=== PATIENT | male | born 1955 | race Caucasian/White ===

== ENCOUNTER 2021-11-13 06:08 | Day surgery (SDC) | payer OTHER ==
[2021-11-11 10:25] LABS: COVID AG,FIA SOURCE NASAL SWAB
[~2021-11-13] VITALS: Ht 172.7 cm; Wt 73.6 kg
[2021-11-13] MEDS ORDERED: TETRACAINE HCL/PF 0.5% 4 ML OPHTHALMIC SOLUTION OU ONE (06:09)
[2021-11-13] MEDS ORDERED: BALANCED SALT 15 ML OPHTHALMIC IRRIG.SOLN OU ONE (06:09)
[2021-11-13] MEDS ORDERED: POVIDONE-IODINE 10% 15 ML SOLUTION UD TP ONE (06:09)
[2021-11-13] MEDS ORDERED: EPINEPHrine 1:1,000 [1 MG/ML] VIAL IM ONE (06:09)
[2021-11-13] MEDS ORDERED: LIDOCAINE/PF 1% 2 ML VIAL IM ONE (06:09)
[2021-11-13] MEDS ORDERED: MIDAZOLAM HCL 2 MG/2 ML VIAL IVP ONE (06:09)
[2021-11-13] MEDS ORDERED: CHONDR SULF A SOD/HYALURONATE 1.05 ML KIT IO ONE (06:09)
[2021-11-13] MEDS ORDERED: FentaNYL CITRATE PF 100 MCG/2 ML VIAL IVP ONE (06:09)
[2021-11-13] MEDS ORDERED: RINGERS SOLUTION,LACTATED 500 ML IV ONE ×2 (06:30→06:35)
[2021-11-13] MEDS ORDERED: TROPICAMIDE 1% 2 ML OPHTHALMIC SOLUTION ONE ×2 (06:52→06:53)
[2021-11-13] MEDS ORDERED: MOXIFLOXACIN HCL 0.5% 3 ML OPHTHALMIC SOLUTION ONE ×2 (06:52→06:53)
[2021-11-13] MEDS ORDERED: PHENYLEPHRINE HCL 2.5% 2 ML OPHTHALMIC SOLUTION ONE ×2 (06:52→06:53)
[2021-11-13] MEDS ORDERED: KETOROLAC TROMETHAMINE 0.5% 5 ML OPHTHALMIC SOLUTION ONE ×2 (06:52→06:53)
[2021-11-13] MEDS: KETOROLAC TROMETHAMINE 0.5% 5 ML OPHTHALMIC SOLUTION OD SCH ×3 (07:01→07:13)
[2021-11-13] MEDS: MOXIFLOXACIN HCL 0.5% 3 ML OPHTHALMIC SOLUTION OD SCH ×3 (07:01→07:14)
[2021-11-13] MEDS: PHENYLEPHRINE HCL 2.5% 2 ML OPHTHALMIC SOLUTION OD SCH ×3 (07:01→07:14)
[2021-11-13] MEDS: TROPICAMIDE 1% 2 ML OPHTHALMIC SOLUTION OD SCH ×3 (07:01→07:14)
[2021-11-13 07:51] LABS: GLUCOMETER DEV NAME(LOC) SDS.; GLUCOSE,POINT OF CARE 202 MG/DL (70-110)
[2021-11-13] MEDS ORDERED: ATOR40TA28 PO (08:08)
[2021-11-13] MEDS ORDERED: LISI-894 PO (08:09)
[2021-11-13] MEDS ORDERED: METF-1211 PO (08:10)
[2021-11-13] MEDS ORDERED: AMLO-257 PO (08:11)
[2021-11-13] MEDS ORDERED: ASPI-1450 PO (08:11)
[2021-11-13] MEDS ORDERED: MAGN250T9 PO (08:12)
== END 2021-11-13 10:00 | disposition home or self-care (01) ==
LOC: SURGERY 06:08
PROVIDERS: ATTEND Ophthalmology
DX: H25.11 Age-related nuclear cataract, right eye (principal); E11.36 Type 2 diabetes mellitus with diabetic cataract; I10 Essential (primary) hypertension; Z79.899 Other long term (current) drug therapy; Z98.890 Other specified postprocedural states; Z79.82 Long term (current) use of aspirin
CPT/HCPCS: 66984; 82962; 87426; 93005; C9803; J0171; J2250; J3010; J3490; J7120; Q9967; V2632

== ENCOUNTER 2021-12-11 06:27 | Day surgery (SDC) | payer OTHER ==
[2021-12-09 14:05] LABS: COVID AG,FIA SOURCE NASAL SWAB
[~2021-12-11] VITALS: Ht 167.6 cm; Wt 68.2 kg
[~2021-12-11 06:27] MED LIST: AMLO-257 PO; ASPI-1450 PO; ATOR40TA28 PO; LISI-894 PO; MAGN250T9 PO; METF-1211 PO
[2021-12-11] MEDS ORDERED: TETRACAINE HCL/PF 0.5% 4 ML OPHTHALMIC SOLUTION OU ONE (06:28)
[2021-12-11] MEDS ORDERED: MIDAZOLAM HCL 2 MG/2 ML VIAL IVP ONE (06:28)
[2021-12-11] MEDS ORDERED: FentaNYL CITRATE PF 100 MCG/2 ML VIAL IVP ONE (06:28)
[2021-12-11] MEDS ORDERED: CHONDR SULF A SOD/HYALURONATE 1.05 ML KIT IO ONE (06:28)
[2021-12-11] MEDS ORDERED: EPINEPHrine 1:1,000 [1 MG/ML] VIAL IM ONE (06:28)
[2021-12-11] MEDS ORDERED: BALANCED SALT 15 ML OPHTHALMIC IRRIG.SOLN OU ONE (06:28)
[2021-12-11] MEDS ORDERED: LIDOCAINE/PF 1% 2 ML VIAL IM ONE (06:28)
[2021-12-11] MEDS ORDERED: POVIDONE-IODINE 10% 15 ML SOLUTION UD TP ONE (06:28)
[2021-12-11] MEDS ORDERED: KETOROLAC TROMETHAMINE 0.5% 5 ML OPHTHALMIC SOLUTION ONE (06:56)
[2021-12-11] MEDS ORDERED: MOXIFLOXACIN HCL 0.5% 3 ML OPHTHALMIC SOLUTION ONE (06:57)
[2021-12-11] MEDS ORDERED: TROPICAMIDE 1% 2 ML OPHTHALMIC SOLUTION ONE (06:57)
[2021-12-11] MEDS ORDERED: PHENYLEPHRINE HCL 2.5% 2 ML OPHTHALMIC SOLUTION ONE (06:57)
[2021-12-11] MEDS ORDERED: RINGERS SOLUTION,LACTATED 500 ML IV ONE (07:00)
[2021-12-11] MEDS: KETOROLAC TROMETHAMINE 0.5% 5 ML OPHTHALMIC SOLUTION OS SCH ×3 (07:15→07:29)
[2021-12-11] MEDS: MOXIFLOXACIN HCL 0.5% 3 ML OPHTHALMIC SOLUTION OS SCH ×3 (07:16→07:29)
[2021-12-11] MEDS: PHENYLEPHRINE HCL 2.5% 2 ML OPHTHALMIC SOLUTION OS SCH ×3 (07:16→07:29)
[2021-12-11] MEDS: TROPICAMIDE 1% 2 ML OPHTHALMIC SOLUTION OS SCH ×3 (07:16→07:29)
[2021-12-11 07:35] LABS: GLUCOMETER DEV NAME(LOC) SDS.; GLUCOSE,POINT OF CARE 152 MG/DL (70-110)
== END 2021-12-11 09:05 | disposition home or self-care (01) ==
LOC: SURGERY 06:27
PROVIDERS: ATTEND Ophthalmology
DX: H25.12 Age-related nuclear cataract, left eye (principal); I10 Essential (primary) hypertension; Z98.890 Other specified postprocedural states; Z79.899 Other long term (current) drug therapy
CPT/HCPCS: 66984; 82962; 87426; C9803; J0171; J2250; J3010; J3490; Q9967; V2632